=== PATIENT | female | born 1995 | race Caucasian/White ===

== ENCOUNTER 2018-10-05 12:21 | Emergency (ER) | payer OTHER ==
[~2018-10-05] VITALS: Ht 177.8 cm; Wt 102.1 kg
== END 2018-10-05 15:23 | disposition home or self-care (01) ==
LOC: ER 12:21
DX: S00.83XA Contusion of other part of head, initial encounter (principal); G44.309 Post-traumatic headache, unspecified, not intractable; W22.8XXA Striking against or struck by other objects, initial encounter; Y93.89 Activity, other specified; Y92.69 Other specified industrial and construction area as the place of occurrence of the external cause; Y99.8 Other external cause status

== ENCOUNTER 2020-06-17 12:49 | Emergency (ER) | payer OTHER ==
[~2020-06-17] VITALS: Ht 175.3 cm; Wt 108.9 kg
[2020-06-17] MEDS ORDERED: CLARITIN10 M1 PO (13:15)
== END 2020-06-17 17:40 | disposition home or self-care (01) ==
LOC: ER 12:49
DX: J06.9 Acute upper respiratory infection, unspecified (principal); Z20.822 Contact with and (suspected) exposure to COVID-19